=== PATIENT | male | born 1980 | race Asian ===

== ENCOUNTER 2023-01-18 14:23 | Emergency (ER) | payer MEDICAID ==
[~2023-01-18] VITALS: Ht 167.6 cm; Wt 59.0 kg
[2023-01-18 14:38] VITALS: BP_SYST 152; PULSE 65; RESP 20; TEMP 98.3; O2SAT 96
[2023-01-18] MEDS ORDERED: KETOROLAC TROMETHAMINE 30 MG VIAL IVP ONE (14:45)
[2023-01-18] MEDS ORDERED: ONDANSETRON HCL 4 MG/2 ML VIAL IVP ONE (14:45)
[2023-01-18] MEDS ORDERED: NACL 0.9% 1,000 ML IV ONE (14:45)
[2023-01-18 15:04] LABS: BASOPHILS % (AUTO) 0.4 % (0.0-2.0); EOSINOPHILS % (AUTO) 0.4 % (0.0-4.0); HEMATOCRIT 46.1 % (36-54); HEMOGLOBIN 15.1 g/dL (14.0-18.0); LYMPHOCYTES # (AUTO) 1.5 K/uL (1.0-5.5); LYMPHOCYTES % (AUTO) 14.5 % (20.5-51.5); MEAN CORPUSCULAR HEMOGLOBIN 30 pg (27-31); MEAN CORPUSCULAR HGB CONC 33 % (32-36); MEAN CORPUSCULAR VOLUME 93 fL (79.0-98.0); MONOCYTES # (AUTO) 0.5 K/uL (0.0-1.0); MONOCYTES % (AUTO) 4.8 % (1.7-9.3); NEUTROPHILS # (AUTO) 8.1 K/uL (1.8-7.7); NEUTROPHILS % (AUTO) 79.9 % (40.0-70.0); PLATELET COUNT (AUTO) 232 K/uL (130-430); RED BLOOD CELL COUNT(AUTO) 4.95 MIL/uL (4.2-6.2); RED CELL DISTRIBUTION WIDTH 12.8 % (9.0-15.0); WHITE BLOOD COUNT (AUTO) 10.2 K/uL (4.8-10.8)
[2023-01-18 15:16] LABS: CALCIUM 8.6 mg/dL (8.4-11.0); CREATININE 0.81 mg/dL (0.55-1.30); POTASSIUM 3.2 mmol/L (3.5-5.1)
[2023-01-18 15:20] LABS: ALBUMIN 3.8 g/dL (3.4-4.8); TOTAL BILIRUBIN 0.8 mg/dL (0.0-1.0); TOTAL PROTEIN, SERUM 7.1 g/dL (6.4-8.3)
[2023-01-18 15:42] LABS: INFLUENZA TYPE A Negative (NEGATIVE); INFLUENZA TYPE B NEGATIVE (NEGATIVE)
[2023-01-18] MEDS ORDERED: POTASSIUM CHLORIDE 20 MEQ TAB.PRT.SR PO ONE (17:00)
[2023-01-18] MEDS ORDERED: NS 500 ML IV ONE (17:30)
[2023-01-18] MEDS ORDERED: MECLIZINE HCL 25 MG TABLET (ANITVERT) PO ONE (17:30)
[2023-01-18] MEDS ORDERED: ONDA-8 TL (17:30)
[2023-01-18] MEDS ORDERED: MECL-292 PO (17:30)
[2023-01-18] MEDS ORDERED: IBUP-1971 PO (17:30)
[2023-01-18 18:30] VITALS: BP_SYST 115; PULSE 65; RESP 16; TEMP 97.9; O2SAT 97
== END 2023-01-18 18:30 | disposition home or self-care (01) ==
LOC: SED 14:23
DX: H81.10 Benign paroxysmal vertigo, unspecified ear (principal); R11.10 Vomiting, unspecified; E87.6 Hypokalemia; R51.9 Headache, unspecified; Z79.899 Other long term (current) drug therapy; Z20.822 Contact with and (suspected) exposure to COVID-19
CPT/HCPCS: 99285; 96374; 70450; 96361; 96375; 87426; 80053; 82550; 83690; 85025; 36415; 93005; 76376; 87804 ×2; J8597; J1885; J2405; J7030

== ENCOUNTER 2023-11-29 14:28 | Emergency (ER) | payer OTHER, BC ==
[~2023-11-29] VITALS: Ht 167.6 cm; Wt 59.0 kg
[~2023-11-29 14:28] MED LIST: IBUP-1971 PO; MECL-292 PO; ONDA-8 TL
[2023-11-29 14:30] VITALS: BP_SYST 117; PULSE 69; RESP 18; TEMP 98.2; O2SAT 96
[2023-11-29] MEDS: IBUPROFEN 800 MG TABLET PO ONE (15:40)
[2023-11-29] MEDS ORDERED: DICL20GE TP (16:35)
[2023-11-29] MEDS ORDERED: IBUP-1969 PO (16:35)
[2023-11-29 16:42] VITALS: BP_SYST 117; PULSE 69; RESP 18; TEMP 98.2; O2SAT 96
== END 2023-11-29 16:44 | disposition home or self-care (01) ==
LOC: SED 14:28
DX: S70.01XA Contusion of right hip, initial encounter (principal); M25.561 Pain in right knee; Z79.899 Other long term (current) drug therapy; Z79.2 Long term (current) use of antibiotics; V89.2XXA Person injured in unspecified motor-vehicle accident, traffic, initial encounter; Y93.89 Activity, other specified; Y92.89 Other specified places as the place of occurrence of the external cause; Y99.8 Other external cause status
CPT/HCPCS: 72170-TC; 73502; 73564; 99284